=== PATIENT | male | born 1990 | race African-American/Black ===

== ENCOUNTER 2018-04-15 20:58 | Emergency (ER) | payer OTHER ==
[2018-04-15] MEDS: HYDROcodone/APAP 5/325MG 1 TAB TABLET PO (22:18)
[2018-04-15] MEDS: AZITHROMYCIN 250 MG TABLET. PO (22:18)
== END 2018-04-15 22:20 | disposition home or self-care (01) ==
LOC: ER 22:20
DX: J40 Bronchitis, not specified as acute or chronic (principal); J02.9 Acute pharyngitis, unspecified
CPT/HCPCS: 99283; Q0144